=== PATIENT | male | born 1970 | race Caucasian/White ===

== ENCOUNTER 2017-12-19 18:36 | Inpatient (IN) | payer MEDICARE, OTHER ==
[~2017-12-19] VITALS: Ht 190.5 cm; Wt 102.0 kg
[~2017-12-19 18:36] MED LIST: CARI350T PO; GABA600T PO; HYDR1TAB10 PO; IBUP-1051 PO
[2017-12-19] MEDS ORDERED: magnesium 2GM in 50ml NS 50 ML IV ONE (18:50)
[2017-12-19] MEDS ORDERED: aspirin 325mg tablet PO ONE (18:50)
[2017-12-19] MEDS ORDERED: normal saline 1000ML IV soln IVB ONE (18:50)
[2017-12-19] MEDS ORDERED: diltiazem 5mg/ml 5ml inj. IV ONE (18:50)
[2017-12-19] MEDS ORDERED: LORazepam 2 mg/ml vial IV ONE (18:50)
[2017-12-19 19:06] LABS: BASOPHILS % (AUTO) 0.5 % (0-1); EOSINOPHILS # (AUTO) 0.2 X10'3 (0-0.9); EOSINOPHILS % (AUTO) 2.5 % (0-6); HEMATOCRIT 46.5 % (42.0-52.0); HEMOGLOBIN 16.3 g/dl (14.0-17.9); LYMPHOCYTES # (AUTO) 2.4 X10'3 (1.1-4.8); LYMPHOCYTES % (AUTO) 33.6 % (21-51); MEAN CORPUSCULAR HEMOGLOBIN 30.7 PG (27.0-31.0); MEAN CORPUSCULAR VOLUME 87.7 FL (78-98); MEAN PLATELET VOLUME 8.9 FL (7.4-10.4); MONOCYTES # (AUTO) 0.5 X10'3 (0-0.9); MONOCYTES % (AUTO) 7.2 % (2-12); NEUTROPHILS # (AUTO) 4.1 X10'3 (1.8-7.7); NEUTROPHILS % (AUTO) 56.2 % (42-75); PLATELET COUNT 261 X10'3 (140-440); RED CELL DISTRIBUTION WIDTH 12.9 % (11.5-14.5); WHITE BLOOD COUNT 7.3 X10'3 (4.5-11.0)
[2017-12-19 19:17] LABS: PARTIAL THROMBOPLASTIN TIME 26 SECONDS (22-32); PROTHROMBIN TIME 10.7 SECONDS (9.0-12.0)
[2017-12-19 19:20] LABS: ALANINE AMINOTRANSFERASE 44 U/L (12-78); ALBUMIN 4.4 G/DL (3.4-5.0); ALBUMIN/GLOBULIN RATIO 1.4 (1.1-1.5); ALKALINE PHOSPHATASE 48 IU/L (46-116); ANION GAP 10 (8-16); ASPARTATE AMINO TRANSFERASE 17 U/L (10-37); BILIRUBIN,TOTAL 0.4 MG/DL (0.1-1.0); BLOOD UREA NITROGEN 16 MG/DL (7-18); BUN/CREATININE RATIO 13.3 (5.4-32.0); CALCIUM 9.1 MG/DL (8.5-10.1); CHLORIDE 104 MMOL/L (99-107); GLUCOSE 97 MG/DL (70-104); POTASSIUM 4.1 MMOL/L (3.5-5.1); SODIUM 142 MMOL/L (135-145); TOTAL CARBON DIOXIDE 28.3 MMOL/L (24-32); TOTAL PROTEIN 7.6 G/DL (6.4-8.2); eGFR 65 ML/MIN
[2017-12-19] MEDS ORDERED: diltiazem-D5W 125mg/125ml 125 ML IV SCH (20:05)
[2017-12-19 20:16] LABS: CLARITY,URINE CLEAR (Clear); COLOR,URINE STRAW (Yellow); GLUCOSE, URINE NEGATIVE (Neg); KETONES,URINE NEGATIVE (Neg); LEUKOCYTE ESTERASE ,URINE NEGATIVE (Neg); NITRITES, URINE NEGATIVE (Neg); OCCULT BLOOD,URINE NEGATIVE (Neg); PROTEIN,URINE NEGATIVE (Neg); UA COLLECTION TYPE CLN CATCH MIDSTREAM; UROBILINOGEN,URINE 0.2 E.U/dL (0.2-1.0)
[2017-12-19 20:27] LABS: URINE AMPHETAMINE SCREEN NEGATIVE (Neg); URINE BARBITUATE SCREEN NEGATIVE (Neg); URINE BENZODIAZEPINES SCREEN NEGATIVE (Neg); URINE CANNABINOID SCREEN NEGATIVE (Neg); URINE COCAINE SCREEN NEGATIVE (Neg); URINE METHADONE SCREEN NEGATIVE (Neg); URINE OPIATE SCREEN NEGATIVE (Neg); URINE PHENCYCLIDINE SCREEN NEGATIVE (Neg)
[2017-12-19 20:30] LABS: D-DIMER < 0.19 MG/L FEU (0-0.50)
[2017-12-19] MEDS ORDERED: NAPR-56 PO (20:32)
[2017-12-19] MEDS ORDERED: LEVO150T PO (20:32)
[2017-12-19 20:34] LABS: MAGNESIUM 1.8 MG/DL (1.5-2.4)
[2017-12-19] MEDS ORDERED: diphenhydrAMINE 25mg capsule PO PRN (20:50)
[2017-12-19] MEDS ORDERED: diphenhydrAMINE 50 mg/ml inj IV PRN (20:50)
[2017-12-19] MEDS ORDERED: magnesium hydroxide 30ml (MOM) UD suspension PO PRN (20:50)
[2017-12-19] MEDS ORDERED: acetaminophen 650mg rectal suppository RC PRN (20:50)
[2017-12-19] MEDS ORDERED: ondansetron/PF 4mg/2ml inj IV PRN (20:50)
[2017-12-19] MEDS ORDERED: acetaminophen 325mg tablet PO PRN ×2 (20:50)
[2017-12-19] MEDS ORDERED: mag hydrox/Alum hydrox/simeth 30ml oral suspension PO PRN (20:50)
[2017-12-19] MEDS ORDERED: bisacodyl 10mg suppository rectal RC PRN (20:50)
[2017-12-19] MEDS ORDERED: metoclopramide 5 mg/ml inj IV PRN (20:50)
[2017-12-19 21:21] LABS: HEMOGLOBIN A1C 5.6 % (4.5-6.2)
[2017-12-19 21:29] LABS: LIPASE 615 U/L (73-393); PHOSPHORUS 3.7 MG/DL (2.3-4.5)
[2017-12-19] MEDS: normal saline 1000ml 1,000 ML IV SCH (22:07)
[2017-12-19] MEDS: temazepam 15mg capsule PO PRN (22:14)
[2017-12-19] MEDS: HYDROcodone/acetaminophen 5mg/325mg tablet PO PRN (22:15)
[2017-12-20] VITALS (16 sets, daily range): BP systolic 95–137; BP diastolic 62–86
[2017-12-20] MEDS ORDERED: normal saline 1000ml 1,000 ML IVB ONE (02:10)
[2017-12-20] MEDS: temazepam 15mg capsule PO PRN (02:27)
[2017-12-20] MEDS: morphine 2 MG/ML inj. syringe IV PRN ×2 (02:28→05:45)
[2017-12-20] MEDS: normal saline 1000ml 1,000 ML IV SCH ×2 (07:19→16:50)
[2017-12-20] MEDS: docusate sod 100mg capsule PO SCH ×2 (07:20→20:13)
[2017-12-20] MEDS: levoTHYROXINE 75mcg tablet PO SCH (07:20)
[2017-12-20] MEDS: pantoprazole 40mg Tablet.DR PO SCH (07:20)
[2017-12-20 07:22] LABS: BASOPHILS # (AUTO) 0.1 X10'3 (0-0.2); BASOPHILS % (AUTO) 1.1 % (0-1); EOSINOPHILS # (AUTO) 0.2 X10'3 (0-0.9); EOSINOPHILS % (AUTO) 3.4 % (0-6); HEMATOCRIT 41.2 % (42.0-52.0); HEMOGLOBIN 14.4 g/dl (14.0-17.9); LYMPHOCYTES # (AUTO) 2.1 X10'3 (1.1-4.8); LYMPHOCYTES % (AUTO) 37.4 % (21-51); MEAN CORPUSCULAR HEMOGLOBIN 30.7 PG (27.0-31.0); MEAN CORPUSCULAR HGB CONC 35.1 % (33.0-36.5); MEAN CORPUSCULAR VOLUME 87.5 FL (78-98); MONOCYTES # (AUTO) 0.4 X10'3 (0-0.9); NEUTROPHILS # (AUTO) 2.9 X10'3 (1.8-7.7); NEUTROPHILS % (AUTO) 51.1 % (42-75); PLATELET COUNT 203 X10'3 (140-440); RED BLOOD COUNT 4.71 X10'6 (4.70-6.10); RED CELL DISTRIBUTION WIDTH 13.4 % (11.5-14.5); WHITE BLOOD COUNT 5.6 X10'3 (4.5-11.0)
[2017-12-20 07:47] LABS: ALANINE AMINOTRANSFERASE 35 U/L (12-78); ALBUMIN 3.3 G/DL (3.4-5.0); ALBUMIN/GLOBULIN RATIO 1.3 (1.1-1.5); ALKALINE PHOSPHATASE 36 IU/L (46-116); ANION GAP 6 (8-16); ASPARTATE AMINO TRANSFERASE 12 U/L (10-37); BILIRUBIN,TOTAL 0.4 MG/DL (0.1-1.0); BLOOD UREA NITROGEN 18 MG/DL (7-18); CALCIUM 7.5 MG/DL (8.5-10.1); CHLORIDE 110 MMOL/L (99-107); CHOL/HDL RATIO 5.7 (0.00-4.99); CHOLESTEROL 199 MG/DL (0-200); GLUCOSE 106 MG/DL (70-104); HDL CHOLESTEROL 35 MG/DL (35-60); LDL CHOLESTEROL 137 MG/DL (50-100); POTASSIUM 4.2 MMOL/L (3.5-5.1); SODIUM 142 MMOL/L (135-145); TOTAL CARBON DIOXIDE 25.6 MMOL/L (24-32); TOTAL PROTEIN 5.8 G/DL (6.4-8.2); TRIGLYCERIDES 112 MG/DL (20-135); eGFR > 90 ML/MIN
[2017-12-20] MEDS ORDERED: non-formulary drug (Levothyroxine Sodium (Synthroid) 1 TAB) PO SCH (08:00)
[2017-12-20] MEDS ORDERED: enoxaparin 100mg/ml syringe SUBCUT ONE (08:00)
[2017-12-20] MEDS ORDERED: metoprolol tartrate 1mg/ml inj IV PRN (08:25)
[2017-12-20] MEDS ORDERED: nitroGLYCERIN 0.4mg SUBLingual tab SL PRN (08:25)
[2017-12-20] MEDS ORDERED: regadenoson 0.4mg/5ml syringe IV ONE ×2 (08:25→11:12)
[2017-12-20] MEDS ORDERED: aminophylline 250mg/10ml inj. IV PRN (08:25)
[2017-12-20] MEDS: nitroGLYCERIN 0.4mg SUBLingual tab SL PRN ×3 (09:01→09:08)
[2017-12-20] MEDS: HYDROcodone/acetaminophen 5mg/325mg tablet PO PRN ×3 (09:35→20:13)
[2017-12-20] MEDS ORDERED: aminophylline inj. 0 ML IV ONE (11:12)
[2017-12-20] MEDS ORDERED: aspirin 325mg tablet PO ONE (13:30)
[2017-12-20] MEDS ORDERED: benzonatate 100mg capsule PO PRN (14:00)
[2017-12-20] MEDS: metoprolol tartrate 25mg tablet PO SCH ×2 (14:30→20:14)
[2017-12-21] MEDS: normal saline 1000ml 1,000 ML IV SCH (02:50)
[2017-12-21 02:51] VITALS: BP 123/65
[2017-12-21 03:00] VITALS: BP 97/53
[2017-12-21 06:00] VITALS: BP 95/67
[2017-12-21 07:03] LABS: BASOPHILS % (AUTO) 0.8 % (0-1); EOSINOPHILS # (AUTO) 0.3 X10'3 (0-0.9); EOSINOPHILS % (AUTO) 5.3 % (0-6); HEMATOCRIT 44.7 % (42.0-52.0); HEMOGLOBIN 15.7 g/dl (14.0-17.9); LYMPHOCYTES # (AUTO) 1.8 X10'3 (1.1-4.8); LYMPHOCYTES % (AUTO) 32.4 % (21-51); MEAN CORPUSCULAR HEMOGLOBIN 30.7 PG (27.0-31.0); MEAN CORPUSCULAR HGB CONC 35.2 % (33.0-36.5); MEAN CORPUSCULAR VOLUME 87.1 FL (78-98); MONOCYTES # (AUTO) 0.4 X10'3 (0-0.9); MONOCYTES % (AUTO) 6.6 % (2-12); NEUTROPHILS % (AUTO) 54.9 % (42-75); PLATELET COUNT 204 X10'3 (140-440); RED BLOOD COUNT 5.13 X10'6 (4.70-6.10); RED CELL DISTRIBUTION WIDTH 12.9 % (11.5-14.5); WHITE BLOOD COUNT 5.5 X10'3 (4.5-11.0)
[2017-12-21 07:22] LABS: GLUCOSE 99 MG/DL (70-104); SODIUM 142 MMOL/L (135-145)
[2017-12-21 07:23] LABS: ALANINE AMINOTRANSFERASE 32 U/L (12-78); ALBUMIN 3.5 G/DL (3.4-5.0); ALBUMIN/GLOBULIN RATIO 1.3 (1.1-1.5); ALKALINE PHOSPHATASE 40 IU/L (46-116); ANION GAP 7 (8-16); ASPARTATE AMINO TRANSFERASE 13 U/L (10-37); BILIRUBIN,TOTAL 0.6 MG/DL (0.1-1.0); BLOOD UREA NITROGEN 12 MG/DL (7-18); CALCIUM 8.3 MG/DL (8.5-10.1); CHLORIDE 108 MMOL/L (99-107); TOTAL CARBON DIOXIDE 26.6 MMOL/L (24-32); TOTAL PROTEIN 6.3 G/DL (6.4-8.2); eGFR 81 ML/MIN
[2017-12-21] MEDS: levoTHYROXINE 75mcg tablet PO SCH (08:27)
[2017-12-21] MEDS: docusate sod 100mg capsule PO SCH (08:27)
[2017-12-21] MEDS: pantoprazole 40mg Tablet.DR PO SCH (08:28)
[2017-12-21] MEDS: metoprolol tartrate 25mg tablet PO SCH (08:28)
[2017-12-21] MEDS: HYDROcodone/acetaminophen 5mg/325mg tablet PO PRN (08:29)
[2017-12-21] MEDS ORDERED: ASPI-41 PO (08:30)
[2017-12-21] MEDS ORDERED: METO-395 PO (08:30)
[2017-12-21] MEDS ORDERED: aspirin 325mg tablet PO SCH (08:30)
[2017-12-21] MEDS ORDERED: BENZ-16 PO (08:46)
== END 2017-12-21 09:50 | disposition home or self-care (01) | DRG 308 ==
LOC: ER 18:37 → ED HOLD 20:54 → PCU 3S 12-20 08:35
PROVIDERS: ADMIT Family Medicine; ATTEND Family Medicine
PROC: 4A02XM4 Measurement of Cardiac Total Activity, External Approach (ICD-10-PCS; principal; 2017-12-20)
PROC: 3E033HZ Introduction of Radioactive Substance into Peripheral Vein, Percutaneous Approach (ICD-10-PCS; 2017-12-20)
DX: I48.91 Unspecified atrial fibrillation (principal); K85.90 Acute pancreatitis without necrosis or infection, unspecified; E03.9 Hypothyroidism, unspecified; E66.9 Obesity, unspecified; E86.0 Dehydration; I10 Essential (primary) hypertension; F17.210 Nicotine dependence, cigarettes, uncomplicated; Z88.0 Allergy status to penicillin; Z88.6 Allergy status to analgesic agent; Z91.048 Other nonmedicinal substance allergy status; Z79.1 Long term (current) use of non-steroidal anti-inflammatories (NSAID); Z79.899 Other long term (current) drug therapy
CPT/HCPCS: 36415; 71045; 71275; 78452; 80053; 80061; 80305; 81003; 83036; 83690; 83735; 83880; 84100; 84443; 84484; 85025; 85379; 85610; 85730; 87070; 93005; 93017; 93306; 96374; 96375; 99285; A9500; J0280; J1650; J2060; J2270; J3475; J3490; J7030

== ENCOUNTER 2024-07-28 22:29 | Emergency (ER) | payer MEDICAID ==
[~2024-07-28] VITALS: Ht 190.5 cm; Wt 130.0 kg
[~2024-07-28 22:29] MED LIST changes: -CARI350T PO; -GABA600T PO; -HYDR1TAB10 PO; -IBUP-1051 PO; +LEVO150T PO; +METO-395 PO
[2024-07-28 22:40] VITALS: BP 167/87; PULSE 85; RESP 16; TEMP 98; O2SAT 97
--- NOTE | 2024-07-29 00:10 | NUR ---
Patient refused discharge vital signs
== END 2024-07-29 00:14 ==
LOC: ER 22:30
DX: S01.112A Laceration without foreign body of left eyelid and periocular area, initial encounter (principal); S01.402A Unspecified open wound of left cheek and temporomandibular area, initial encounter; Y04.0XXA Assault by unarmed brawl or fight, initial encounter; Y93.89 Activity, other specified; Y92.89 Other specified places as the place of occurrence of the external cause; Y99.8 Other external cause status
CPT/HCPCS: 71045; 99283